=== PATIENT | male | born 1935 | race Caucasian/White ===

== ENCOUNTER 2016-12-17 09:56 | Outpatient (CLI) | payer OTHER ==
--- NOTE | 2016-12-17 11:33 | DIAGNOSTIC IMAGING REPORT ---
PROCEDURE: US BILATERAL CAROTID DOPPLER INDICATION: CAROTID STENOSIS,ABN MRA OF NECK TECHNIQUE: Color Doppler duplex imaging of the carotid and vertebral vessels. COMPARISON: None. FINDINGS: Right carotid system: Less than 15% stenosis. Left carotid system: 50-69% stenosis. Vertebral System: Antegrade vertebral artery flow bilaterally. Right common carotid artery peak systolic velocity 58 cm/second. Right internal carotid artery peak systolic velocity 66 cm/second. Right external carotid artery peak systolic velocity 103 cm/second. Right mbkqxyrb-fd-dlqmfa carotid artery ratio 1.6 Right vertebral artery peak systolic velocity 43 cm/second. Left common carotid artery peak systolic velocity 64 cm/second. Left internal carotid artery peak systolic velocity 135 cm/second. Left external carotid artery peak systolic velocity 116 cm/second. Left cpfehpst-lw-cxumgc carotid artery ratio 2.1 Left vertebral artery peak systolic velocity 51 cm/second. IMPRESSION: 1. Left carotid 50 - 69% stenosis. 2. Antegrade vertebral artery flow bilaterally. Velocity criteria are extrapolated from diameter data as defined by the Society of [employer]ologists in Ultrasound Consensus Conference, Radiology 2003; 229; 340-346.
--- NOTE | 2016-12-17 11:33 | DIAGNOSTIC IMAGING REPORT ---
PROCEDURE: US BILATERAL CAROTID DOPPLER INDICATION: CAROTID STENOSIS,ABN MRA OF NECK TECHNIQUE: Color Doppler duplex imaging of the carotid and vertebral vessels. COMPARISON: None. FINDINGS: Right carotid system: Less than 15% stenosis. Left carotid system: 50-69% stenosis. Vertebral System: Antegrade vertebral artery flow bilaterally. Right common carotid artery peak systolic velocity 58 cm/second. Right internal carotid artery peak systolic velocity 66 cm/second. Right external carotid artery peak systolic velocity 103 cm/second. Right oixzoijz-ag-xwhmlk carotid artery ratio 1.6 Right vertebral artery peak systolic velocity 43 cm/second. Left common carotid artery peak systolic velocity 64 cm/second. Left internal carotid artery peak systolic velocity 135 cm/second. Left external carotid artery peak systolic velocity 116 cm/second. Left iswtuork-fr-eaajrz carotid artery ratio 2.1 Left vertebral artery peak systolic velocity 51 cm/second. IMPRESSION: 1. Left carotid 50 - 69% stenosis. 2. Antegrade vertebral artery flow bilaterally. Velocity criteria are extrapolated from diameter data as defined by the [employer] of [employer]ologists in Ultrasound Consensus Conference, Radiology 2003; 229; 340-346.
== END 2016-12-17 23:00 ==
LOC: US SRH 09:56
DX: I65.22 Occlusion and stenosis of left carotid artery (principal)